=== PATIENT | female | born 1980 | race Caucasian/White ===

== ENCOUNTER 2016-10-25 18:55 | Emergency (ER) | payer MEDICAID ==
--- NOTE | 2016-10-25 20:40 | XRay Report ---
FINAL REPORT PROCEDURE: XR ELBOW 3 RT TECHNIQUE: Right elbow radiographs, including AP, lateral, and oblique views. CPT 08690 HISTORY: RT elbow injury with pain COMPARISON: No prior studies are available for comparison. FINDINGS: Fracture (s) and/or Dislocation(s): None . Alignment: Normal . Joint space(s): Normal . Soft tissues: Normal . Bone mineralization: Normal . Foreign bodies: None . IMPRESSION: Normal Examination
--- NOTE | 2016-10-25 20:44 | XRay Report ---
FINAL REPORT PROCEDURE: XR SHOULDER 2 RT TECHNIQUE: Right shoulder radiographs including AP views in internal and external rotation and abduction. CPT 87745 HISTORY: RT shoulder injury with pain COMPARISON: No prior studies are available for comparison. FINDINGS: Fracture (s) and/or Dislocation(s): None . Joint space(s): Normal . Soft tissues: Normal . Bone mineralization: Normal . Foreign bodies: None . Incidental calcified granuloma in the right lung. IMPRESSION: Normal Examination
--- NOTE | 2016-10-25 23:46 | Emergency Department Report ---
Upper Extremity - HPI Chief Complaint: Extremity Injury, Upper Stated Complaint: RIGHT ELBOW PAIN Time Seen by Provider: 10/25/16 23:40 Upper Extremity: Right Shoulder (pain after twisting), Right Elbow (Pain after twisting) Occurred When: Today Mechanism: Twist Severity: moderate (5 out of 10) Symptoms: Yes Pain with Movement (right elbow and right shoulder), Yes Limited Range of Movement (Rt elbow and right shoulder), No Deformity, No Numbness, No Weakness, No Swelling, No Bruising/Ecchymosis, No Laceration or Abrasion Other History: Patient here reported that she has been or "stridor and she pushed her right hand and while he was still rotating to get out of Tylenol and her arm got twistedcomplaining or right shoulder and right elbow pain. Denies any pain in her right forearm and hand with fingers or arm. Denies any numbness or tingling. Denies any cuts. This happened Today and She Did Not Take Any [id number] Pain Medication. ED Review of Systems ROS: Stated complaint: RIGHT ELBOW PAIN Other details as noted in HPI Comment: All other systems reviewed and negative Constitutional: denies: chills, fever Respiratory: no symptoms reported Cardiovascular: denies: chest pain, palpitations, edema, syncope Gastrointestinal: denies: abdominal pain, nausea, vomiting, diarrhea Musculoskeletal: arthralgia. denies: back pain, joint swelling, myalgia Skin: denies: rash Neurological: denies: headache, weakness, numbness, paresthesias, confusion, abnormal gait, vertigo ED Past Medical Hx - Past Medical History Previous Medical History?: Yes Hx Hypertension: No Hx Heart Attack/AMI: No Hx Congestive Heart Failure: No Hx Diabetes: No Hx Deep Vein Thrombosis: No Hx Renal Disease: No Hx Sickle Cell Disease: No Hx Seizures: No Hx Asthma: No Hx COPD: No Hx HIV: No Additional medical history: ANEMIA - Surgical History Past Surgical History?: Yes Additional Surgical History: TUBAL LIGATION - Family History Family history: no significant - Social History Smoking Status: Never Smoker Substance Use Type: None - Medications Home Medications: Home Medications Medication Instructions Recorded Confirmed Last Taken Type Prenat Vit Comb.10/Iron/FA/Dha 1 tab PO DAILY 07/04/15 07/04/15 Unknown History Meloxicam 15 mg PO QDAY #30 tablet 07/05/15 Unknown Rx traMADol [Ultram] 50 mg PO Q6HR PRN #14 tablet 07/05/15 Unknown Rx Cyclobenzaprine [Flexeril 10 MG 10 mg PO BID PRN #14 tablet 10/26/16 Unknown Rx TAB] Ibuprofen [Motrin] 600 mg PO Q8H PRN #15 tablet 10/26/16 Unknown Rx Upper Extremity Exam - Exam General: Vital signs noted. No distress. Alert and acting appropriately. This is a 35-year-old female well-nourished well-developed in no acute distress. Lungs:Clear Auscultated bilaterally, no rhonchi wheezes or rales. Cardiovascular: S1, S2. Regular rate and rhythm. Psych: Normal mood and behavior. Skin: No clubbing, cyanosis or edema. Head and Torso: No HEENT Abnormality, No Neck Tenderness, No Chest/Lungs Abnormality, No Abdominal Tenderness, No Back Tenderness Shoulder Exam: Yes Normal Range of Motion in Shoulder, No Shoulder Tenderness, No Clavicle Tenderness, No Shoulder Deformity, No AC Joint Tenderness Arm Exam: No Arm/Humerus Tenderness, No Arm Deformity Elbow: Yes Elbow Tenderness (mild tenderness with flexion and extension of elbow. Nontender to palpate. No swelling noted.), Yes Normal Range of Motion in Elbow (she has full range of motion. She said it hurts when she flexes and extend.), No Elbow Deformity Forearm: No Forearm Tenderness, No Forearm Deformity, No Pain with Pronation, No Pain with Supination Wrist: Yes Normal ROM in Wrist, No Wrist Tenderness, No Wrist Deformity, No Snuffbox Tenderness, No Pain with Axial Thumb Compression Hand: Yes Normal ROM in Digit(s), No Hand Tenderness, No Hand Deformity, No Digit Tenderness, No Digit(s) Deformity, No Tendon Dysfunction CMS Exam: Yes Normal Distal Pulses, Yes Normal Capillary Refill, Yes Normal Distal Sensation, No Broken Skin ED Course Vital Signs 10/25/16 10/26/16 23:47 00:14 Temperature 98.2 F Pulse Rate 78 Respiratory 18 20 Rate Blood Pressure 122/74 [Left] O2 Sat by Pulse 100 Oximetry - Reevaluation(s) Reevaluation #1: 10/26/16 00:55 Patient given cassette 5/325 mg 2 tablet by mouth and Flexeril 10 mg one tablet by mouth in emergency room for pain and she reports relief of her pain. See procedure note for details on splinting. 10/26/16 00:55 - Orthopedic Splinting/Casting Injury #1 Side: right Upper Extremity Injury Location: shoulder, upper arm, elbow Upper Extremity Immobilizer: sling/shoulder immobilize ED Medical Decision Making - Radiology Data Radiology results: report reviewed X-ray report on right shoulder revealed normal exam. X-ray report to right elbow reveals normal exam. - Medical Decision Making ED course: Patient status post right upper extremity strain to elbow and shoulder. She was given Percocet 5/325 mg 2 tablets emergency room along with Flexeril 10 mg by mouth for pain which she said relieved her pain. see procedure Note for splinting detail. Patient discharged home with prescription for Motrin and instructed to follow-up with orthopedic doctor if she still continues to have pain after few days. Critical care attestation.: If time is entered above; I have spent that time in minutes in the direct care of this critically ill patient, excluding procedure time. ED Disposition Clinical Impression: Arthralgia of multiple sites Injury of right upper extremity Qualifiers: Encounter type: initial encounter Qualified Code(s): S49.91XA - Unspecified injury of right shoulder and upper arm, initial encounter Muscle strain of right upper extremity Qualifiers: Encounter type: initial encounter Qualified Code(s): S46.911A - Strain of unspecified muscle, fascia and tendon at shoulder and upper arm level, right arm , initial encounter Disposition: DISCHARGED TO HOME OR SELFCARE Is pt being admited?: No Does the pt Need Aspirin: No Condition: Stable Instructions: Muscle Strain (ED), Arthralgia (ED) Additional Instructions: Please rest, ice, compress and elevate the area for the next 72 hours. If you continue to hurt after 3 days, patient follow-up with orthopedic doctor. See discharge instructions for phone number. Take Motrin as instructed. Keep right upper extremity sling on for immobilization Prescriptions: Cyclobenzaprine [Flexeril 10 MG TAB] 10 mg PO BID PRN #14 tablet PRN Reason: Muscle strain Ibuprofen [Motrin] 600 mg PO Q8H PRN #15 tablet PRN Reason: Pain Referrals: JOSSELIN MALAVE MD [Primary Care Provider] - 2-3 Days OBIE MURRY MD [Staff Physician] - 10/29/16 Forms: Accompanied Note, Work/School Release Form(ED)
[2016-10-25 23:48] VITALS: BP 122/74
[2016-10-26] MEDS ORDERED: PERCOCET 5/325 PO ONE (00:06)
[2016-10-26] MEDS ORDERED: FLEXERIL PO ONE (00:06)
== END 2016-10-26 01:42 | disposition home or self-care (01) ==
LOC: ED 18:55
DX: S46.911A Strain of unspecified muscle, fascia and tendon at shoulder and upper arm level, right arm, initial encounter (principal); Z98.51 Tubal ligation status; X58.XXXA Exposure to other specified factors, initial encounter; Y93.89 Activity, other specified; Y99.8 Other external cause status; Y92.89 Other specified places as the place of occurrence of the external cause

== ENCOUNTER 2017-07-21 15:45 | Emergency (ER) | payer MEDICAID ==
[2017-07-21] MEDS ORDERED: TORADOL IM ONE (20:34)
--- NOTE | 2017-07-21 20:40 | Emergency Department Report ---
ED Upper Extremity Inj HPI - General Chief Complaint: Extremity Injury, Upper Stated Complaint: LEFT ARM PAIN Time Seen by Provider: 07/21/17 20:34 Source: patient Mode of arrival: Ambulatory Limitations: No Limitations - History of Present Illness Initial Comments: pt is a 36 y/o female who presents with left posterior shoulder pain after moving furniture for past 2 days pt denies trauma or fall but "I have been lift heavy boxes for 3 days now with pain and soreness in left shoulder and muscles, pain is 4/10 soreness aching exacerbated by movement there is no swelling no numbness no weakness Complaint: Injury to:: left, shoulder, forearm Onset/Timin -: days(s) Other Extremity Injury: Hand: Left, Shoulder: Left, Forearm: Left Other Injuries: none Handedness: right Place: home Severity scale (0 -10): 4 Improves With: rest Worsens With: movement of extremity, other (heavy lifting ) Context: other (moving furniture and heavy boxes ) Associated Symptoms: denies: weakness, numbness, neck pain, suspects foreign body, nausea/vomiting, heard/felt popping sensat - Related Data Home Medications Medication Instructions Recorded Confirmed Last Taken Prenat Vit Comb.10/Iron/FA/Dha 1 tab PO DAILY 07/04/15 07/04/15 Unknown Previous Rx's Medication Instructions Recorded Last Taken Type Meloxicam 15 mg PO QDAY #30 tablet 07/05/15 Unknown Rx traMADol [Ultram] 50 mg PO Q6HR PRN #14 tablet 07/05/15 Unknown Rx Cyclobenzaprine [Flexeril 10 MG 10 mg PO BID PRN #14 tablet 10/26/16 Unknown Rx TAB] Ibuprofen [Motrin] 600 mg PO Q8H PRN #15 tablet 10/26/16 Unknown Rx Cyclobenzaprine [Flexeril] 10 mg PO BID PRN #20 tablet 07/21/17 Unknown Rx Menthol/Camphor [Comfort [place] 1 applicator TP BID PRN #1 tube 07/21/17 Unknown Rx Ointment] Naproxen 500 mg PO BID PRN #30 tablet 07/21/17 Unknown Rx Allergies Allergy/AdvReac Type Severity Reaction Status Date / Time No Known Allergies Allergy Verified 07/21/17 16:01 ED Review of Systems ROS: Stated complaint: LEFT ARM PAIN Other details as noted in HPI Constitutional: denies: chills, fever Eyes: denies: eye pain, eye discharge, vision change ENT: denies: ear pain, throat pain Respiratory: denies: cough, shortness of breath, wheezing Cardiovascular: denies: chest pain, palpitations Endocrine: no symptoms reported Gastrointestinal: denies: abdominal pain, nausea, diarrhea Genitourinary: denies: urgency, dysuria, discharge Musculoskeletal: arthralgia, myalgia Skin: denies: rash, lesions Neurological: denies: headache, weakness, paresthesias Psychiatric: denies: anxiety, depression Hematological/Lymphatic: denies: easy bleeding, easy bruising ED Past Medical Hx - Past Medical History Previous Medical History?: Yes Hx Hypertension: No Hx Heart Attack/AMI: No Hx Congestive Heart Failure: No Hx Diabetes: No Hx Deep Vein Thrombosis: No Hx Renal Disease: No Hx Sickle Cell Disease: No Hx Seizures: No Hx Asthma: No Hx COPD: No Hx HIV: No Additional medical history: ANEMIA - Surgical History Past Surgical History?: Yes Additional Surgical History: TUBAL LIGATION - Social History Smoking Status: Never Smoker Substance Use Type: None - Medications Home Medications: Home Medications Medication Instructions Recorded Confirmed Last Taken Type Prenat Vit Comb.10/Iron/FA/Dha 1 tab PO DAILY 07/04/15 07/04/15 Unknown History Meloxicam 15 mg PO QDAY #30 tablet 07/05/15 Unknown Rx traMADol [Ultram] 50 mg PO Q6HR PRN #14 tablet 07/05/15 Unknown Rx Cyclobenzaprine [Flexeril 10 MG 10 mg PO BID PRN #14 tablet 10/26/16 Unknown Rx TAB] Ibuprofen [Motrin] 600 mg PO Q8H PRN #15 tablet 10/26/16 Unknown Rx Cyclobenzaprine [Flexeril] 10 mg PO BID PRN #20 tablet 07/21/17 Unknown Rx Menthol/Camphor [Comfort [place] 1 applicator TP BID PRN #1 tube 07/21/17 Unknown Rx Ointment] Naproxen 500 mg PO BID PRN #30 tablet 07/21/17 Unknown Rx ED Physical Exam - General Limitations: No Limitations General appearance: alert, in no apparent distress - Head Head exam: Present: atraumatic, normocephalic - Eye Eye exam: Present: normal appearance - ENT ENT exam: Present: mucous membranes moist - Neck Neck exam: Present: normal inspection - Respiratory Respiratory exam: Present: normal lung sounds bilaterally. Absent: respiratory distress - Cardiovascular Cardiovascular Exam: Present: regular rate, normal rhythm, normal heart sounds. Absent: systolic murmur, diastolic murmur, rubs, gallop - GI/Abdominal GI/Abdominal exam: Present: soft, normal bowel sounds. Absent: distended, tenderness, guarding, rebound, rigid, mass, bruit, hernia - Rectal Rectal exam: Present: deferred - Extremities Exam Extremities exam: Present: full ROM, tenderness (left posterior lateral shoulder bicept muscle and forearm ), normal capillary refill. Absent: pedal edema, joint swelling, calf tenderness - Expanded Upper Extremity Exam Left Shoulder Exam: Present: normal inspection, full ROM, tenderness (left lateral posterior rom intacty shoulder drop, open can water hauler equal ). Absent: swelling, abrasion, laceration, ecchymosis, deformity, crepidus, dislocation, erythema, tenderness over AC joint Upper Arm exam: Present: full ROM, tenderness (left anterior bicept muscle tenderness ). Absent: swelling, abrasion, laceration, ecchymosis, deformity, crepidus, dislocation, erythema Elbow exam: Present: normal inspection, full ROM Forearm Wrist exam: Present: normal inspection, full ROM, tenderness. Absent: swelling, abrasion, laceration, ecchymosis, deformity, crepidus, dislocation, erythema, tenderness over anatomical snuff box, pain with axial thumb loading Hand Wrist exam: Present: normal inspection, full ROM. Absent: tenderness, swelling, abrasion, laceration, erythema Neuro motor exam: Present: wrist extension intact, thumb opposition intact, thumb IP flexion intact, thumb adduction intact, fingers 2-5 abduction intact Neurosensory exam: Present: 2-point discrimination, radial nerve intact, ulnar nerve intact, median nerve intact Vascular: Present: normal capillary refill, radial pulse, brachial pulse, ulnar pulse. Absent: vascular compromise, Pallo, pulse deficit radial art, pulse deficit ulnar art, pulse deficit brachial art - Back Exam Back exam: Present: normal inspection, full ROM. Absent: tenderness, CVA tenderness (R), CVA tenderness (L), muscle spasm, paraspinal tenderness, vertebral tenderness, rash noted - Neurological Exam Neurological exam: Present: alert, oriented X3, CN II-XII intact, normal gait, reflexes normal. Absent: motor sensory deficit - Psychiatric Psychiatric exam: Present: normal affect - Skin Skin exam: Present: warm, dry, intact ED Course Vital Signs 07/21/17 16:01 Temperature 98.7 F Pulse Rate 76 Respiratory 18 Rate Blood Pressure 100/58 O2 Sat by Pulse 98 Oximetry ED Medical Decision Making - Medical Decision Making left shoulder pain and soreness after moving boxes and furniture there is no left arm numbness no swelling no eccymosis no deformity there is muscular tenderness to palpation that is improved with nsaids, plan tx for shoulder strain and overuse injury with nsaids, muscle relaxant, and moist heat therapy, pt will follow up with pcp in 2-3 days pt verbalized agreement and understanding of discharge plan. Critical care attestation.: If time is entered above; I have spent that time in minutes in the direct care of this critically ill patient, excluding procedure time. ED Disposition Clinical Impression: Overuse injury Shoulder strain Qualifiers: Encounter type: initial encounter Laterality: left Qualified Code(s): S46.912A - Strain of unspecified muscle, fascia and tendon at shoulder and upper arm level, left arm, initial encounter Disposition: TO HOME OR SELFCARE Is pt being admited?: No Does the pt Need Aspirin: No Condition: Good Instructions: Musculoskeletal Pain (ED), Shoulder Sprain (ED) Prescriptions: Cyclobenzaprine [Flexeril] 10 mg PO BID PRN #20 tablet PRN Reason: Muscle Spasm Menthol/Camphor [Comfort [place] Ointment] 1 applicator TP BID PRN #1 tube PRN Reason: Pain Naproxen 500 mg PO BID PRN #30 tablet PRN Reason: Pain Referrals: MONIQUE LUCIA MD [Staff Physician] - 3-5 Days Forms: Work/School Release Form(ED) Time of Disposition: 20:46
[2017-07-21 20:53] VITALS: BP 106/57
== END 2017-07-21 20:53 | disposition home or self-care (01) ==
LOC: ED 15:45
DX: S46.912A Strain of unspecified muscle, fascia and tendon at shoulder and upper arm level, left arm, initial encounter (principal); X50.0XXA Overexertion from strenuous movement or load, initial encounter; Y93.89 Activity, other specified; Y92.89 Other specified places as the place of occurrence of the external cause; Y99.8 Other external cause status
CPT/HCPCS: 96372; 99282; J1885